=== PATIENT | male | born 1950 | race Caucasian/White ===

== ENCOUNTER 2023-10-30 10:57 | Emergency (ER) | payer BC ==
[~2023-10-30] VITALS: Ht 167.6 cm; Wt 120.2 kg
[2023-10-30 11:00] VITALS: BP_SYST 175; PULSE 89; RESP 18; TEMP 97; O2SAT 93
[2023-10-30] MEDS ORDERED: LIDOCAINE 1% 10 MG/ML, 20 ML MDV INJ ONE (11:30)
[2023-10-30] MEDS ORDERED: BACITRACIN 1 GM OINT TP ONE (13:05)
[2023-10-30 13:28] VITALS: BP_SYST 124; PULSE 76; RESP 18; TEMP 97.2; O2SAT 98
== END 2023-10-30 13:28 | disposition home or self-care (01) ==
LOC: SED 10:57
DX: S01.81XA Laceration without foreign body of other part of head, initial encounter (principal); Z79.899 Other long term (current) drug therapy; W18.40XA Slipping, tripping and stumbling without falling, unspecified, initial encounter; Y93.89 Activity, other specified; Y92.89 Other specified places as the place of occurrence of the external cause; Y99.8 Other external cause status
CPT/HCPCS: 99284; 70450; 76376; 12015; J2001